=== PATIENT | male | born 1935 | race Caucasian/White ===

== ENCOUNTER 2018-02-15 11:35 | Inpatient (IN) ==
[2018-02-15] MEDS ORDERED: cefTRIAXone 1,000 MG in SODIUM CHLORIDE 0.9% 100 ML IV STA (12:17)
[2018-02-15] MEDS ORDERED: SODIUM CHLORIDE 0.9% 500 ML IV STA (12:17)
[2018-02-15] MEDS ORDERED: methylPREDNISolone SOD SUC 125 MG/2 ML VIAL IV STA (12:17)
[2018-02-15] MEDS ORDERED: ONDANSETRON 4 MG/2 ML VIAL IV STA (12:17)
[2018-02-15] MEDS ORDERED: ALBUTEROL 2.5 MG/3 ML NEB RESP TX SCH (12:30)
[2018-02-15 12:49] LABS: Basophils % 0.2 % (0.0-0.8); Hematocrit 48.1 VOL% (42.0-52.0); Hemoglobin 15.5 GM/DL (14.0-18.0); Immature Granulocytes % 0.3 %; Immature Granulocytes Absolute 0.04 #; Lymphocytes # 0.8 10*3/uL (1.4-4.0); Lymphocytes % 6.8 % (21.2-54.2); Mean Corpuscular HGB Conc 32.2 GM/DL (32-36); Mean Corpuscular Hemoglobin 30 PG (27-34); Mean Corpuscular Volume 93.8 FL (87-102); Mean Platelet Volume 10.4 FL (9.6-12.0); Monocytes # 0.5 10*3/uL (0.11-0.8); Monocytes % 4.5 % (1.7-12.7); Neutrophils # 10.5 10*3/uL (1.4-7.4); Neutrophils % 88.2 % (38.7-73.9); Platelet Count 258 T/CUMM (130-400); Red Blood Count 5.13 MC/CUMM (3.8-5.5); Red Cell Distribution Width 14.6 % (9.3-17.3); White Blood Count 11.9 T/CUMM (4-12)
[2018-02-15] MEDS ORDERED: FUROSEMIDE 40 MG/4 ML VIAL IV STA (12:50)
[2018-02-15 13:00] LABS: PT Patient Result 11.2 SECS
[2018-02-15 13:16] LABS: ABG Base Excess 1.9 MMOL/L (-2.5-2.5); ABG PCO2 36.3 MM HG (35-48); ABG PH 7.453 (7.35-7.45); ABG PO2 84.1 MM HG (80-95); ABG TCO2 21.5 MMOL/L (23-27)
[2018-02-15 13:17] LABS: Lactic Acid 1.8 MMOL/L (0.4-2.0)
[2018-02-15 13:18] LABS: Bilirubin,Total 0.9 MG/DL (0.2-1.0); Calcium 8.8 MG/DL (8.5-10.1); Osmolality,Calculated 285.1 MOS/KG (273-304); Potassium 4.3 MMOL/L (3.5-5.1); Total Protein 7.9 G/DL (6.4-8.3)
[2018-02-15] MEDS ORDERED: NITROGLYCERIN 2% OINT 1 INCH/GM PACK TOP STA (14:10)
[2018-02-15] MEDS ORDERED: ENOXAPARIN 100 MG/ML SYRINGE SUBCUT STA (14:10)
[2018-02-15] MEDS ORDERED: ASPIRIN EC 325 MG TABLET PO STA (14:11)
[2018-02-15] MEDS ORDERED: PANTOPRAZOLE 40 MG VIAL IV STA (14:11)
[2018-02-15] MEDS ORDERED: ENOXAPARIN 80 MG/0.8 ML SYRINGE SUBCUT ONE (14:51)
[2018-02-15] MEDS ORDERED: METOPROLOL TARTRATE 25 MG TABLET PO STA (17:14)
[2018-02-15] MEDS ORDERED: DIAZEPAM 5 MG TABLET PO ONE (17:20)
[2018-02-15] MEDS ORDERED: MAGNESIUM SULF RIDER 2 GM in PREMIX 1 EACH IV PRN ×2 (17:20→19:16)
[2018-02-15] MEDS ORDERED: diphenhydrAMINE CAP 25 MG CAPSULE PO ONE (17:20)
[2018-02-15] MEDS ORDERED: POTASSIUM CHLORIDE RIDER 10 MEQ in PREMIX 1 EACH IV PRN (17:20)
[2018-02-15 17:50] LABS: CKMB % 12.9 %
[2018-02-15 17:52] LABS: Troponin I 4.3 NG/ML (0.00-0.045)
[2018-02-15] MEDS ORDERED: TIROFIBAN 0 MCG in PREMIX 1 EACH IV ONE (19:16)
[2018-02-15] MEDS ORDERED: ONDANSETRON 4 MG/2 ML VIAL IV PRN (19:16)
[2018-02-15] MEDS ORDERED: MAGNESIUM SULF RIDER 4 GM in PREMIX 1 EACH IV PRN (19:16)
[2018-02-15] MEDS ORDERED: POTASSIUM CHLORIDE 20 MEQ TABLET PO PRN (19:16)
[2018-02-15] MEDS ORDERED: TIROFIBAN IV ONE (19:52)
[2018-02-15] MEDS: ALBUTEROL/IPRATROPIUM 3 ML NEB RESP TX SCH ×2 (20:12→23:37)
[2018-02-15] MEDS: ROSUVASTATIN 20 MG TABLET PO SCH (20:40)
[2018-02-15] MEDS: NITROGLYCERIN 2% OINT 1 INCH/GM PACK TOP SCH (20:41)
[2018-02-15] MEDS: FUROSEMIDE 40 MG/4 ML VIAL IV SCH (20:41)
[2018-02-15] MEDS: FAMOTIDINE 20 MG/2 ML VIAL IV SCH (20:42)
[2018-02-15] MEDS: SODIUM CHLORIDE 0.9% 1,000 ML IV SCH (20:42)
[2018-02-15] MEDS: diphenhydrAMINE CAP 25 MG CAPSULE PO SCH (20:43)
[2018-02-15] MEDS: ENOXAPARIN 60 MG/0.6 ML SYRINGE SUBCUT SCH (20:43)
[2018-02-15] MEDS: TIROFIBAN 5,000 MCG/100 ML PREMIX IV SCH (21:56)
[2018-02-15 22:27] LABS: Troponin I 4.45 NG/ML (0.00-0.045)
[2018-02-16] MEDS: diphenhydrAMINE CAP 25 MG CAPSULE PO SCH ×4 (00:59→18:06)
[2018-02-16] MEDS: FAMOTIDINE 20 MG/2 ML VIAL IV SCH ×4 (00:59→18:06)
[2018-02-16] MEDS: NITROGLYCERIN 2% OINT 1 INCH/GM PACK TOP SCH ×4 (00:59→17:45)
[2018-02-16] MEDS: TIROFIBAN 5,000 MCG/100 ML PREMIX IV SCH ×2 (02:50→11:22)
[2018-02-16 03:18] LABS: Basophils % 0.1 % (0.0-0.8); Hematocrit 41.8 VOL% (42.0-52.0); Hemoglobin 13.2 GM/DL (14.0-18.0); Immature Granulocytes % 0.6 %; Immature Granulocytes Absolute 0.07 #; Lymphocytes # 0.9 10*3/uL (1.4-4.0); Lymphocytes % 8.1 % (21.2-54.2); Mean Corpuscular HGB Conc 31.6 GM/DL (32-36); Mean Corpuscular Hemoglobin 29 PG (27-34); Mean Corpuscular Volume 92.1 FL (87-102); Mean Platelet Volume 10.8 FL (9.6-12.0); Monocytes # 0.8 10*3/uL (0.11-0.8); Monocytes % 7.5 % (1.7-12.7); Neutrophils # 9.2 10*3/uL (1.4-7.4); Neutrophils % 83.7 % (38.7-73.9); Platelet Count 226 T/CUMM (130-400); Red Blood Count 4.54 MC/CUMM (3.8-5.5); Red Cell Distribution Width 14.6 % (9.3-17.3)
[2018-02-16 03:26] LABS: Calcium 8.3 MG/DL (8.5-10.1); Osmolality,Calculated 286.3 MOS/KG (273-304); Potassium 3.8 MMOL/L (3.5-5.1)
[2018-02-16 03:29] LABS: CKMB % 10.3 %
[2018-02-16 03:34] LABS: Troponin I 5.35 NG/ML (0.00-0.045)
[2018-02-16 03:37] LABS: Albumin 3.6 G/DL (3.4-5.0); Bilirubin,Total 0.6 MG/DL (0.2-1.0); Calcium 8.2 MG/DL (8.5-10.1); Osmolality,Calculated 280.7 MOS/KG (273-304); Potassium 3.8 MMOL/L (3.5-5.1); Risk Ratio 3.3; Thyroid Stimulating Hormone 0.191 uIU/ml (0.358-3.74); VLDL CHOLESTEROL 9.8 MG/DL
[2018-02-16] MEDS: ALBUTEROL/IPRATROPIUM 3 ML NEB RESP TX SCH ×5 (03:54→19:03)
[2018-02-16] MEDS: methylPREDNISolone SOD SUC 40 MG/1 ML VIAL IV SCH ×3 (05:17→21:09)
[2018-02-16] MEDS: ENOXAPARIN 60 MG/0.6 ML SYRINGE SUBCUT SCH ×2 (08:26→21:08)
[2018-02-16] MEDS: FUROSEMIDE 40 MG/4 ML VIAL IV SCH ×2 (08:27→16:42)
[2018-02-16] MEDS ORDERED: DIAZEPAM 5 MG TABLET ONE (10:44)
[2018-02-16] MEDS ORDERED: diphenhydrAMINE CAP 50 MG CAPSULE ONE (10:44)
[2018-02-16] MEDS ORDERED: LIDOCAINE 1% 20 ML VIAL ONE (13:47)
[2018-02-16] MEDS ORDERED: HYDROmorphone 2 MG/1 ML VIAL ONE (13:47)
[2018-02-16] MEDS ORDERED: MIDAZOLAM 2 MG/2 ML VIAL ONE ×2 (13:48→15:09)
[2018-02-16] MEDS ORDERED: ENOXAPARIN 30 MG/0.3 ML SYRINGE ONE (14:08)
[2018-02-16] MEDS ORDERED: ZALEPLON 5 MG CAPSULE PO PRN (15:30)
[2018-02-16] MEDS ORDERED: NITROGLYCERIN SL 0.4 MG TABLET SL PRN (15:30)
[2018-02-16] MEDS ORDERED: MIDAZOLAM 2 MG/2 ML VIAL IV ONE (16:13)
[2018-02-16] MEDS: ASPIRIN EC 81 MG TABLET PO SCH (16:42)
[2018-02-16 16:46] LABS: Apearance,Urine CLEAR (Clear); Bilirubin,Urine Negative (Negative); Blood, Urine Moderate mg/dL (Negative); Glucose,Urine (UA) Negative (Negative); Hyaline Casts,Urine 9 /LPF (0-3); Ketones,Urine Negative (Negative); Mucus,Urine Occasional /LPF (Occasional); Nitrite,Urine Negative (Negative); Protein,Urine Negative; RBC,Urine 57 /HPF (0-4); Urine Color Yellow (Yellow); Urine Specific Gravity 1.015 (1.001-1.035); Urine Urobilinogen < 2.0 EU/DL (0.2-1.0)
[2018-02-16] MEDS ORDERED: HALOPERIDOL 5 MG/ML AMP IV ONE (17:17)
[2018-02-16] MEDS ORDERED: HYDROmorphone 2 MG/1 ML VIAL IV ONE (17:18)
[2018-02-16 17:27] LABS: CKMB % 4.5 %
[2018-02-16 17:33] LABS: Troponin I 2.48 NG/ML (0.00-0.045)
[2018-02-16] MEDS: LORazepam 2 MG/1 ML VIAL IV PRN ×2 (18:32→22:55)
[2018-02-16] MEDS: SODIUM CHLORIDE 0.9% 1,000 ML IV SCH (21:00)
[2018-02-17] MEDS: ALBUTEROL/IPRATROPIUM 3 ML NEB RESP TX SCH ×7 (00:27→23:30)
[2018-02-17] MEDS: LORazepam 2 MG/1 ML VIAL IV PRN ×4 (00:35→23:59)
[2018-02-17] MEDS: HYDROmorphone 2 MG/1 ML VIAL IV PRN ×2 (01:34→11:26)
[2018-02-17] MEDS: NITROGLYCERIN 2% OINT 1 INCH/GM PACK TOP SCH ×4 (03:00→18:15)
[2018-02-17 04:22] LABS: Basophils % 0.1 % (0.0-0.8); Hematocrit 41.6 VOL% (42.0-52.0); Hemoglobin 13.5 GM/DL (14.0-18.0); Immature Granulocytes % 0.8 %; Immature Granulocytes Absolute 0.17 #; Lymphocytes # 0.6 10*3/uL (1.4-4.0); Lymphocytes % 3.1 % (21.2-54.2); Mean Corpuscular HGB Conc 32.5 GM/DL (32-36); Mean Corpuscular Hemoglobin 30 PG (27-34); Mean Corpuscular Volume 92.4 FL (87-102); Mean Platelet Volume 10.7 FL (9.6-12.0); Monocytes # 1.5 10*3/uL (0.11-0.8); Monocytes % 7.3 % (1.7-12.7); Neutrophils # 17.9 10*3/uL (1.4-7.4); Neutrophils % 88.7 % (38.7-73.9); Platelet Count 242 T/CUMM (130-400); Red Cell Distribution Width 14.6 % (9.3-17.3); White Blood Count 20.1 T/CUMM (4-12)
[2018-02-17 04:37] LABS: Calcium 8.3 MG/DL (8.5-10.1); Osmolality,Calculated 294.1 MOS/KG (273-304)
[2018-02-17 04:40] LABS: CKMB % 1.6 %; Calcium 8.3 MG/DL (8.5-10.1); Osmolality,Calculated 293.1 MOS/KG (273-304); Potassium 4.2 MMOL/L (3.5-5.1)
[2018-02-17 04:43] LABS: Troponin I 1.76 NG/ML (0.00-0.045)
[2018-02-17] MEDS ORDERED: HALOPERIDOL 5 MG/ML AMP IM ONE (05:00)
[2018-02-17 05:59] LABS: Anisocytosis 1+; Band Neutrophils 1 % (0-10); Lymphocytes 3 % (20-55); Platelet Estimate Normal; Segmented Neutrophils 90 % (50-85); Total Cells Counted 100
[2018-02-17] MEDS: ROSUVASTATIN 20 MG TABLET PO SCH ×2 (06:20→22:38)
[2018-02-17] MEDS: methylPREDNISolone SOD SUC 40 MG/1 ML VIAL IV SCH ×2 (06:57→16:15)
[2018-02-17] MEDS ORDERED: LIDOCAINE 2% TOP JELLY 20 ML VIAL INTRAURETH ONE (09:23)
[2018-02-17] MEDS ORDERED: LIDOCAINE 2% 20 ML VIAL ONE (09:24)
[2018-02-17] MEDS: ENOXAPARIN 60 MG/0.6 ML SYRINGE SUBCUT SCH (09:29)
[2018-02-17] MEDS: ASPIRIN EC 81 MG TABLET PO SCH (10:30)
[2018-02-17] MEDS ORDERED: MIDAZOLAM 2 MG/2 ML VIAL ONE (11:00)
[2018-02-17] MEDS ORDERED: MIDAZOLAM 2 MG/2 ML VIAL IV ONE (11:03)
[2018-02-17] MEDS ORDERED: HYDROmorphone 2 MG/1 ML VIAL IV ONE (11:26)
[2018-02-17] MEDS: FUROSEMIDE 40 MG/4 ML VIAL IV SCH (12:28)
[2018-02-17] MEDS: METOPROLOL TARTRATE 25 MG TABLET PO SCH ×2 (13:44→22:50)
[2018-02-18] MEDS: NITROGLYCERIN 2% OINT 1 INCH/GM PACK TOP SCH ×4 (01:08→17:45)
[2018-02-18] MEDS: methylPREDNISolone SOD SUC 40 MG/1 ML VIAL IV SCH ×3 (01:08→15:31)
[2018-02-18] MEDS: HYDROmorphone 2 MG/1 ML VIAL IV PRN (01:42)
[2018-02-18] MEDS: ALBUTEROL/IPRATROPIUM 3 ML NEB RESP TX SCH ×6 (03:33→23:18)
[2018-02-18] MEDS: LORazepam 2 MG/1 ML VIAL IV PRN ×4 (04:30→21:09)
[2018-02-18 05:02] LABS: Hematocrit 43.9 VOL% (42.0-52.0); Immature Granulocytes % 0.6 %; Immature Granulocytes Absolute 0.13 #; Lymphocytes # 0.6 10*3/uL (1.4-4.0); Lymphocytes % 2.8 % (21.2-54.2); Mean Corpuscular HGB Conc 31.9 GM/DL (32-36); Mean Corpuscular Hemoglobin 30 PG (27-34); Mean Platelet Volume 11.1 FL (9.6-12.0); Monocytes # 1.6 10*3/uL (0.11-0.8); Monocytes % 7.8 % (1.7-12.7); Neutrophils # 17.9 10*3/uL (1.4-7.4); Neutrophils % 88.8 % (38.7-73.9); Platelet Count 254 T/CUMM (130-400); Red Blood Count 4.72 MC/CUMM (3.8-5.5); Red Cell Distribution Width 14.4 % (9.3-17.3); White Blood Count 20.2 T/CUMM (4-12)
[2018-02-18 05:29] LABS: Calcium 8.7 MG/DL (8.5-10.1); Osmolality,Calculated 305.6 MOS/KG (273-304); Potassium 4.8 MMOL/L (3.5-5.1)
[2018-02-18 07:08] LABS: Band Neutrophils 3 % (0-10); Lymphocytes 4 % (20-55); Metamyelocytes 1 %; Segmented Neutrophils 83 % (50-85)
[2018-02-18 07:12] LABS: Platelet Estimate Normal; Total Cells Counted 100
[2018-02-18] MEDS: METOPROLOL TARTRATE 25 MG TABLET PO SCH ×3 (09:08→20:53)
[2018-02-18] MEDS: HALOPERIDOL 5 MG/ML AMP IM PRN ×2 (14:03→20:30)
[2018-02-18] MEDS: ROSUVASTATIN 20 MG TABLET PO SCH (20:53)
[2018-02-19] MEDS: methylPREDNISolone SOD SUC 40 MG/1 ML VIAL IV SCH ×4 (00:31→23:53)
[2018-02-19] MEDS: NITROGLYCERIN 2% OINT 1 INCH/GM PACK TOP SCH ×5 (00:41→23:54)
[2018-02-19] MEDS: ALBUTEROL/IPRATROPIUM 3 ML NEB RESP TX SCH ×6 (03:19→23:28)
[2018-02-19 04:52] LABS: Basophils % 0.1 % (0.0-0.8); Hematocrit 42.9 VOL% (42.0-52.0); Hemoglobin 13.6 GM/DL (14.0-18.0); Immature Granulocytes % 0.6 %; Lymphocytes # 0.5 10*3/uL (1.4-4.0); Lymphocytes % 2.8 % (21.2-54.2); Mean Corpuscular HGB Conc 31.7 GM/DL (32-36); Mean Corpuscular Hemoglobin 30 PG (27-34); Mean Corpuscular Volume 93.7 FL (87-102); Mean Platelet Volume 11.7 FL (9.6-12.0); Monocytes # 1.3 10*3/uL (0.11-0.8); Monocytes % 7.9 % (1.7-12.7); Neutrophils # 14.8 10*3/uL (1.4-7.4); Neutrophils % 88.6 % (38.7-73.9); Platelet Count 217 T/CUMM (130-400); Red Blood Count 4.58 MC/CUMM (3.8-5.5); Red Cell Distribution Width 14.6 % (9.3-17.3); White Blood Count 16.7 T/CUMM (4-12)
[2018-02-19 05:12] LABS: Calcium 8.9 MG/DL (8.5-10.1); Potassium 4.5 MMOL/L (3.5-5.1)
[2018-02-19 05:21] LABS: Band Neutrophils 1 % (0-10); Lymphocytes 2 % (20-55); Segmented Neutrophils 93 % (50-85); Total Cells Counted 100
[2018-02-19 05:22] LABS: Hypochromasia 1+
[2018-02-19] MEDS: HYDROmorphone 2 MG/1 ML VIAL IV PRN (05:58)
[2018-02-19] MEDS: HALOPERIDOL 5 MG/ML AMP IM PRN (06:38)
[2018-02-19] MEDS: LORazepam 2 MG/1 ML VIAL IV PRN (08:38)
[2018-02-19] MEDS: METOPROLOL TARTRATE 25 MG TABLET PO SCH ×2 (08:40→21:09)
[2018-02-19] MEDS ORDERED: MIDAZOLAM 10 MG/2 ML VIAL ONE (09:23)
[2018-02-19] MEDS ORDERED: VECURONIUM 10 MG VIAL IV ONE ×2 (09:23→09:25)
[2018-02-19] MEDS ORDERED: ETOMIDATE 20 MG/10 ML VIAL IV ONE ×2 (09:23→09:25)
[2018-02-19] MEDS ORDERED: MIDAZOLAM 2 MG/2 ML VIAL IV ONE (09:25)
[2018-02-19] MEDS: PROPOFOL 1,000 MG/100 ML BOTTLE IV SCH ×2 (10:04→21:10)
[2018-02-19] MEDS ORDERED: ALBUTEROL/IPRATROPIUM 3 ML NEB RESP TX PRN (10:08)
[2018-02-19 10:56] LABS: ABG Base Excess -3.2 MMOL/L (-2.5-2.5); ABG HCO3 21.8 MMOL/L (20-26); ABG Oxygen Saturation 99.6 % (95-100); ABG PCO2 65.2 MM HG (35-48); ABG TCO2 23.6 MMOL/L (23-27); Allen Test Positive; Pt O2 Delivery Device Ventilator
[2018-02-19] MEDS ORDERED: DEXTROSE 50% 25 GM/50 ML SYRINGE IV PRN (11:58)
[2018-02-19] MEDS ORDERED: GLUCAGON 1 MG VIAL IM PRN (11:58)
[2018-02-19] MEDS: INSULIN REGULAR 100 UNIT/ML SUBCUT SCH ×3 (12:27→23:54)
[2018-02-19 12:39] LABS: Albumin 3.6 G/DL (3.4-5.0); Bilirubin,Direct 0.48 MG/DL (0.0-0.20); Bilirubin,Indirect 0.7 MG/DL (0.0-1.0); Bilirubin,Total 1.2 MG/DL (0.2-1.0); Total Protein 7.1 G/DL (6.4-8.3)
[2018-02-19] MEDS ORDERED: METOPROLOL TARTRATE 5 MG/5 ML VIAL IV ONE (13:04)
[2018-02-19] MEDS ORDERED: SODIUM CHLORIDE 0.9% 500 ML IV ONE ×2 (13:12→16:02)
[2018-02-19] MEDS: SODIUM CHLORIDE 0.45% 1,000 ML IV SCH (16:34)
[2018-02-19] MEDS: METOPROLOL TARTRATE 5 MG/5 ML VIAL IV SCH ×2 (17:14→23:53)
[2018-02-19] MEDS: MEROPENEM 500 MG in SODIUM CHLORIDE 0.9% 100 ML IV SCH (18:40)
[2018-02-19] MEDS: ROSUVASTATIN 20 MG TABLET PO SCH (21:09)
[2018-02-19] MEDS: PHENYLEPHRINE DRIP 40 MG/250 ML PREMIX IV PRN (21:10)
[2018-02-20] MEDS: SODIUM CHLORIDE 0.45% 1,000 ML IV SCH ×2 (03:10→13:46)
[2018-02-20] MEDS: ALBUTEROL/IPRATROPIUM 3 ML NEB RESP TX SCH ×6 (03:14→22:47)
[2018-02-20] MEDS: MEROPENEM 500 MG in SODIUM CHLORIDE 0.9% 100 ML IV SCH (03:27)
[2018-02-20 03:56] LABS: ABG Base Excess -0.4 MMOL/L (-2.5-2.5); ABG HCO3 24.2 MMOL/L (20-26); ABG Oxygen Saturation 99.2 % (95-100); ABG PCO2 46.9 MM HG (35-48); ABG PH 7.348 (7.35-7.45); ABG TCO2 22.7 MMOL/L (23-27); Allen Test Positive; Pt O2 Delivery Device Ventilator
[2018-02-20 04:24] LABS: Basophils % 0.1 % (0.0-0.8); Hematocrit 39.8 VOL% (42.0-52.0); Hemoglobin 12.4 GM/DL (14.0-18.0); Immature Granulocytes % 0.6 %; Immature Granulocytes Absolute 0.13 #; Lymphocytes # 0.4 10*3/uL (1.4-4.0); Lymphocytes % 1.8 % (21.2-54.2); Mean Corpuscular HGB Conc 31.2 GM/DL (32-36); Mean Corpuscular Hemoglobin 30 PG (27-34); Mean Corpuscular Volume 96.8 FL (87-102); Mean Platelet Volume 11.4 FL (9.6-12.0); Monocytes # 1.7 10*3/uL (0.11-0.8); Monocytes % 7.6 % (1.7-12.7); Neutrophils # 19.8 10*3/uL (1.4-7.4); Neutrophils % 89.9 % (38.7-73.9); Platelet Count 257 T/CUMM (130-400); Red Blood Count 4.11 MC/CUMM (3.8-5.5); Red Cell Distribution Width 14.8 % (9.3-17.3)
[2018-02-20 04:33] LABS: INR 1.2; PT Patient Result 13.1 SECS; Partial Thromboplastin Time 26.4 SECS (0-40)
[2018-02-20 04:44] LABS: Band Neutrophils 2 % (0-10); Lymphocytes 2 % (20-55); Segmented Neutrophils 87 % (50-85); Total Cells Counted 100
[2018-02-20 04:45] LABS: Hypochromasia 1+; Platelet Estimate Adequate
[2018-02-20 04:50] LABS: Albumin 2.9 G/DL (3.4-5.0); Bilirubin,Total 1.2 MG/DL (0.2-1.0); Calcium 8.1 MG/DL (8.5-10.1); Osmolality,Calculated 338.3 MOS/KG (273-304); Potassium 5.2 MMOL/L (3.5-5.1); Prealbumin 10.4 MG/DL (20-40); Total Protein 6.2 G/DL (6.4-8.3)
[2018-02-20] MEDS: PROPOFOL 1,000 MG/100 ML BOTTLE IV SCH ×3 (05:05→20:31)
[2018-02-20] MEDS: NITROGLYCERIN 2% OINT 1 INCH/GM PACK TOP SCH ×4 (06:26→23:43)
[2018-02-20] MEDS: METOPROLOL TARTRATE 5 MG/5 ML VIAL IV SCH (06:26)
[2018-02-20] MEDS: INSULIN REGULAR 100 UNIT/ML SUBCUT SCH ×3 (06:26→17:33)
[2018-02-20] MEDS: methylPREDNISolone SOD SUC 40 MG/1 ML VIAL IV SCH ×3 (06:27→23:25)
[2018-02-20] MEDS: METOPROLOL TARTRATE 25 MG TABLET PO SCH (08:42)
[2018-02-20] MEDS: PHENYLEPHRINE DRIP 40 MG/250 ML PREMIX IV PRN ×4 (12:05→23:21)
[2018-02-20] MEDS ORDERED: ROCURONIUM 100 MG/10 ML VIAL IV ONE (13:37)
[2018-02-20] MEDS ORDERED: fentaNYL 100 MCG/2 ML VIAL ONE (13:37)
[2018-02-20] MEDS ORDERED: SEVOFLURANE 1 UNIT/15 MINUTE INH ONE (13:37)
[2018-02-20] MEDS: ROSUVASTATIN 20 MG TABLET PO SCH (21:30)
[2018-02-21] MEDS: INSULIN REGULAR 100 UNIT/ML SUBCUT SCH ×4 (01:31→18:40)
[2018-02-21] MEDS: ALBUTEROL/IPRATROPIUM 3 ML NEB RESP TX SCH ×6 (02:21→23:36)
[2018-02-21 03:42] LABS: Allen Test Positive; Pt O2 Delivery Device Ventilator
[2018-02-21 03:43] LABS: ABG Base Excess -3.2 MMOL/L (-2.5-2.5); ABG HCO3 21.8 MMOL/L (20-26); ABG Oxygen Saturation 99.6 % (95-100); ABG PCO2 43.7 MM HG (35-48); ABG PH 7.326 (7.35-7.45); ABG TCO2 20.2 MMOL/L (23-27)
[2018-02-21] MEDS: PHENYLEPHRINE DRIP 40 MG/250 ML PREMIX IV PRN ×3 (04:46→16:13)
[2018-02-21] MEDS: MEROPENEM 500 MG in SODIUM CHLORIDE 0.9% 100 ML IV SCH (04:53)
[2018-02-21] MEDS: PROPOFOL 1,000 MG/100 ML BOTTLE IV SCH ×4 (05:18→21:15)
[2018-02-21] MEDS: NITROGLYCERIN 2% OINT 1 INCH/GM PACK TOP SCH (05:20)
[2018-02-21 05:51] LABS: Basophils % 0.1 % (0.0-0.8); Hematocrit 39.1 VOL% (42.0-52.0); Immature Granulocytes % 0.8 %; Immature Granulocytes Absolute 0.14 #; Lymphocytes # 0.4 10*3/uL (1.4-4.0); Lymphocytes % 2.1 % (21.2-54.2); Mean Corpuscular HGB Conc 30.7 GM/DL (32-36); Mean Corpuscular Hemoglobin 30 PG (27-34); Mean Corpuscular Volume 98.5 FL (87-102); Mean Platelet Volume 11.4 FL (9.6-12.0); Monocytes # 1.1 10*3/uL (0.11-0.8); Monocytes % 6.1 % (1.7-12.7); Neutrophils # 16.3 10*3/uL (1.4-7.4); Neutrophils % 90.9 % (38.7-73.9); Platelet Count 250 T/CUMM (130-400); Red Blood Count 3.97 MC/CUMM (3.8-5.5); White Blood Count 17.9 T/CUMM (4-12)
[2018-02-21 06:05] LABS: Albumin 2.4 G/DL (3.4-5.0); Bilirubin,Total 1.5 MG/DL (0.2-1.0); Calcium 7.5 MG/DL (8.5-10.1); Osmolality,Calculated 333.4 MOS/KG (273-304); Potassium 4.6 MMOL/L (3.5-5.1); Total Protein 6.2 G/DL (6.4-8.3)
[2018-02-21] MEDS: SODIUM CHLORIDE 0.45% 1,000 ML IV SCH ×2 (06:11→16:21)
[2018-02-21 06:20] LABS: Band Neutrophils 1 % (0-10); Lymphocytes 2 % (20-55); Segmented Neutrophils 93 % (50-85); Total Cells Counted 100
[2018-02-21 06:21] LABS: Microcytosis 1+
[2018-02-21] MEDS: methylPREDNISolone SOD SUC 40 MG/1 ML VIAL IV SCH ×3 (06:34→22:09)
[2018-02-21] MEDS: ASPIRIN CHEW 81 MG TABLET PO SCH (09:11)
[2018-02-21] MEDS: HALOPERIDOL 5 MG/ML AMP IM PRN (11:26)
[2018-02-21] MEDS: CLINDAMYCIN INJ 300 MG in PREMIX 1 EACH IV SCH ×3 (11:26→22:09)
[2018-02-21] MEDS: HYDROmorphone 2 MG/1 ML VIAL IV PRN (12:38)
[2018-02-21] MEDS: ROSUVASTATIN 20 MG TABLET PO SCH (22:09)
[2018-02-22] MEDS: INSULIN REGULAR 100 UNIT/ML SUBCUT SCH ×4 (00:49→17:13)
[2018-02-22] MEDS: SODIUM CHLORIDE 0.45% 1,000 ML IV SCH (02:21)
[2018-02-22] MEDS: ALBUTEROL/IPRATROPIUM 3 ML NEB RESP TX SCH ×6 (03:23→23:35)
[2018-02-22 03:59] LABS: ABG HCO3 25.3 MMOL/L (20-26); ABG Oxygen Saturation 99.6 % (95-100); ABG PCO2 37.3 MM HG (35-48); ABG PH 7.434 (7.35-7.45); ABG TCO2 22.2 MMOL/L (23-27); Pt O2 Delivery Device Ventilator
[2018-02-22] MEDS: CLINDAMYCIN INJ 300 MG in PREMIX 1 EACH IV SCH ×4 (05:05→22:47)
[2018-02-22] MEDS: MEROPENEM 500 MG in SODIUM CHLORIDE 0.9% 100 ML IV SCH (05:05)
[2018-02-22] MEDS: PHENYLEPHRINE DRIP 40 MG/250 ML PREMIX IV PRN ×2 (05:18→22:48)
[2018-02-22] MEDS: PROPOFOL 1,000 MG/100 ML BOTTLE IV SCH ×3 (05:20→21:50)
[2018-02-22 05:27] LABS: Calcium 8.4 MG/DL (8.5-10.1); Osmolality,Calculated 323.1 MOS/KG (273-304)
[2018-02-22] MEDS: methylPREDNISolone SOD SUC 40 MG/1 ML VIAL IV SCH ×3 (06:32→22:47)
[2018-02-22] MEDS: SODIUM CHLORIDE 23.4% CONC INJ 38.5 MEQ in STERILE WATER INJ 1,000 ML IV SCH ×2 (10:01→23:10)
[2018-02-22] MEDS: ASPIRIN CHEW 81 MG TABLET PO SCH (10:01)
[2018-02-22] MEDS: LEVOFLOXACIN INJ 250 MG in PREMIX 1 EACH IV SCH (12:31)
[2018-02-22] MEDS ORDERED: HYDROmorphone 2 MG/1 ML VIAL IV PRN (12:37)
[2018-02-22] MEDS: HALOPERIDOL 5 MG/ML AMP IM PRN (13:45)
[2018-02-22] MEDS: HYDROmorphone 2 MG/1 ML VIAL IV PRN ×2 (13:57→17:49)
[2018-02-22] MEDS: CARVEDILOL 3.125 MG TABLET PO SCH ×2 (14:04→21:10)
[2018-02-22] MEDS: NICOTINE 21 MG/24 HR PATCH TRANSDERM SCH (14:28)
[2018-02-22] MEDS: ROSUVASTATIN 20 MG TABLET PO SCH (21:10)
[2018-02-22] MEDS: CLORAZEPATE 3.75 MG TABLET PO SCH (21:10)
[2018-02-23] MEDS: INSULIN REGULAR 100 UNIT/ML SUBCUT SCH ×4 (01:21→17:41)
[2018-02-23] MEDS: ALBUTEROL/IPRATROPIUM 3 ML NEB RESP TX SCH ×5 (04:10→21:08)
[2018-02-23 04:28] LABS: ABG Base Excess 1.1 MMOL/L (-2.5-2.5); ABG HCO3 25.4 MMOL/L (20-26); ABG Oxygen Saturation 99.3 % (95-100); ABG PCO2 38.7 MM HG (35-48); ABG PH 7.426 (7.35-7.45); ABG TCO2 22.8 MMOL/L (23-27); Pt O2 Delivery Device Ventilator
[2018-02-23] MEDS: CLINDAMYCIN INJ 300 MG in PREMIX 1 EACH IV SCH ×4 (05:42→21:56)
[2018-02-23] MEDS: HYDROmorphone 2 MG/1 ML VIAL IV PRN ×2 (05:42→16:25)
[2018-02-23 05:54] LABS: Basophils % 0.1 % (0.0-0.8); Hematocrit 33.8 VOL% (42.0-52.0); Hemoglobin 10.4 GM/DL (14.0-18.0); Immature Granulocytes % 1.3 %; Immature Granulocytes Absolute 0.15 #; Lymphocytes # 0.3 10*3/uL (1.4-4.0); Lymphocytes % 2.7 % (21.2-54.2); Mean Corpuscular HGB Conc 30.8 GM/DL (32-36); Mean Corpuscular Hemoglobin 30 PG (27-34); Mean Corpuscular Volume 96.6 FL (87-102); Mean Platelet Volume 11.2 FL (9.6-12.0); Monocytes # 0.6 10*3/uL (0.11-0.8); Monocytes % 5.2 % (1.7-12.7); Neutrophils # 10.3 10*3/uL (1.4-7.4); Neutrophils % 90.7 % (38.7-73.9); Platelet Count 163 T/CUMM (130-400); Red Cell Distribution Width 14.6 % (9.3-17.3); White Blood Count 11.4 T/CUMM (4-12)
[2018-02-23 06:03] LABS: Calcium 8.1 MG/DL (8.5-10.1); Osmolality,Calculated 314.7 MOS/KG (273-304); Potassium 5.7 MMOL/L (3.5-5.1)
[2018-02-23] MEDS: methylPREDNISolone SOD SUC 40 MG/1 ML VIAL IV SCH ×3 (06:03→22:00)
[2018-02-23 06:12] LABS: PT Patient Result 11.3 SECS; Partial Thromboplastin Time 23.1 SECS (0-40)
[2018-02-23 06:50] LABS: Platelet Estimate Adequate; Polychromasia Few; Segmented Neutrophils 100 % (50-85); Total Cells Counted 100
[2018-02-23] MEDS: PROPOFOL 1,000 MG/100 ML BOTTLE IV SCH ×3 (07:48→23:08)
[2018-02-23] MEDS ORDERED: SODIUM POLYSTYRENE SULFATE 15 GM/60 ML BOTTLE PO ONE ×2 (07:54→16:44)
[2018-02-23] MEDS: CLORAZEPATE 3.75 MG TABLET PO SCH ×2 (09:23→21:56)
[2018-02-23] MEDS: NICOTINE 21 MG/24 HR PATCH TRANSDERM SCH (09:24)
[2018-02-23] MEDS: CARVEDILOL 3.125 MG TABLET PO SCH ×2 (09:24→21:56)
[2018-02-23] MEDS: ASPIRIN CHEW 81 MG TABLET PO SCH (09:24)
[2018-02-23] MEDS: LEVOFLOXACIN INJ 250 MG in PREMIX 1 EACH IV SCH (10:37)
[2018-02-23] MEDS: HALOPERIDOL 5 MG/ML AMP IM PRN (10:42)
[2018-02-23] MEDS: SODIUM CHLORIDE 23.4% CONC INJ 38.5 MEQ in STERILE WATER INJ 1,000 ML IV SCH (12:51)
[2018-02-23] MEDS: ROSUVASTATIN 20 MG TABLET PO SCH (21:56)
[2018-02-24] MEDS: ALBUTEROL/IPRATROPIUM 3 ML NEB RESP TX SCH ×7 (00:19→22:46)
[2018-02-24] MEDS: INSULIN REGULAR 100 UNIT/ML SUBCUT SCH ×5 (00:30→23:31)
[2018-02-24] MEDS: SODIUM CHLORIDE 23.4% CONC INJ 38.5 MEQ in STERILE WATER INJ 1,000 ML IV SCH ×2 (02:45→15:55)
[2018-02-24 03:47] LABS: ABG HCO3 27.2 MMOL/L (20-26); ABG Oxygen Saturation 98.2 % (95-100); ABG PCO2 40.2 MM HG (35-48); ABG PH 7.448 (7.35-7.45); ABG PO2 121.5 MM HG (80-95); ABG TCO2 28.4 MMOL/L (23-27); Allen Test Positive; Pt O2 Delivery Device Ventilator
[2018-02-24 04:57] LABS: Basophils % 0.1 % (0.0-0.8); Hematocrit 33.7 VOL% (42.0-52.0); Hemoglobin 10.5 GM/DL (14.0-18.0); Immature Granulocytes % 0.6 %; Immature Granulocytes Absolute 0.06 #; Lymphocytes # 0.3 10*3/uL (1.4-4.0); Lymphocytes % 3.3 % (21.2-54.2); Mean Corpuscular HGB Conc 31.2 GM/DL (32-36); Mean Corpuscular Hemoglobin 30 PG (27-34); Mean Corpuscular Volume 94.9 FL (87-102); Monocytes # 0.5 10*3/uL (0.11-0.8); Neutrophils # 9.1 10*3/uL (1.4-7.4); Platelet Count 149 T/CUMM (130-400); Red Blood Count 3.55 MC/CUMM (3.8-5.5); Red Cell Distribution Width 14.3 % (9.3-17.3)
[2018-02-24 05:19] LABS: Calcium 8.1 MG/DL (8.5-10.1)
[2018-02-24 05:23] LABS: Potassium 6.1 MMOL/L (3.5-5.1)
[2018-02-24 05:28] LABS: Band Neutrophils 1 % (0-10); Lymphocytes 5 % (20-55); Segmented Neutrophils 89 % (50-85); Total Cells Counted 100
[2018-02-24 05:29] LABS: Hypochromasia 1+; Platelet Estimate Normal
[2018-02-24 05:30] LABS: Microcytosis 1+
[2018-02-24] MEDS: methylPREDNISolone SOD SUC 40 MG/1 ML VIAL IV SCH ×3 (06:14→22:57)
[2018-02-24] MEDS: CLINDAMYCIN INJ 300 MG in PREMIX 1 EACH IV SCH ×4 (06:14→22:57)
[2018-02-24] MEDS: PROPOFOL 1,000 MG/100 ML BOTTLE IV SCH ×3 (07:26→23:08)
[2018-02-24] MEDS ORDERED: SODIUM POLYSTYRENE SULFATE 15 GM/60 ML BOTTLE RECTAL ONE (07:54)
[2018-02-24] MEDS: CARVEDILOL 3.125 MG TABLET PO SCH ×2 (08:30→20:53)
[2018-02-24] MEDS: ASPIRIN CHEW 81 MG TABLET PO SCH (08:30)
[2018-02-24] MEDS: CLORAZEPATE 3.75 MG TABLET PO SCH ×2 (08:30→20:52)
[2018-02-24] MEDS: HYDROmorphone 2 MG/1 ML VIAL IV PRN (10:39)
[2018-02-24] MEDS: LEVOFLOXACIN INJ 250 MG in PREMIX 1 EACH IV SCH (11:13)
[2018-02-24] MEDS: ROSUVASTATIN 20 MG TABLET PO SCH (20:52)
[2018-02-25] MEDS: ALBUTEROL/IPRATROPIUM 3 ML NEB RESP TX SCH ×6 (02:30→22:59)
[2018-02-25 03:32] LABS: Basophils % 0.1 % (0.0-0.8); Hematocrit 35.9 VOL% (42.0-52.0); Hemoglobin 11.3 GM/DL (14.0-18.0); Immature Granulocytes % 0.8 %; Immature Granulocytes Absolute 0.12 #; Lymphocytes # 0.3 10*3/uL (1.4-4.0); Lymphocytes % 1.8 % (21.2-54.2); Mean Corpuscular HGB Conc 31.5 GM/DL (32-36); Mean Corpuscular Hemoglobin 29 PG (27-34); Mean Corpuscular Volume 93.2 FL (87-102); Mean Platelet Volume 10.9 FL (9.6-12.0); Monocytes # 0.7 10*3/uL (0.11-0.8); Monocytes % 4.7 % (1.7-12.7); Neutrophils # 13.1 10*3/uL (1.4-7.4); Neutrophils % 92.6 % (38.7-73.9); Platelet Count 146 T/CUMM (130-400); Red Blood Count 3.85 MC/CUMM (3.8-5.5); Red Cell Distribution Width 14.3 % (9.3-17.3); White Blood Count 14.1 T/CUMM (4-12)
[2018-02-25 03:33] LABS: Allen Test Positive; Pt O2 Delivery Device Ventilator
[2018-02-25 03:38] LABS: ABG Base Excess 3.2 MMOL/L (-2.5-2.5); ABG HCO3 27.2 MMOL/L (20-26); ABG Oxygen Saturation 98.7 % (95-100); ABG PCO2 41.6 MM HG (35-48); ABG PH 7.432 (7.35-7.45); ABG TCO2 24.5 MMOL/L (23-27)
[2018-02-25 04:00] LABS: Calcium 8.2 MG/DL (8.5-10.1); Osmolality,Calculated 298.4 MOS/KG (273-304); Potassium 5.7 MMOL/L (3.5-5.1)
[2018-02-25 05:35] LABS: Platelet Estimate Adequate; Segmented Neutrophils 98 % (50-85); Total Cells Counted 100
[2018-02-25 05:36] LABS: Polychromasia Few
[2018-02-25] MEDS: SODIUM CHLORIDE 23.4% CONC INJ 38.5 MEQ in STERILE WATER INJ 1,000 ML IV SCH ×2 (06:30→22:31)
[2018-02-25] MEDS: CLINDAMYCIN INJ 300 MG in PREMIX 1 EACH IV SCH ×4 (06:31→22:13)
[2018-02-25] MEDS: PROPOFOL 1,000 MG/100 ML BOTTLE IV SCH ×3 (06:32→19:17)
[2018-02-25] MEDS: methylPREDNISolone SOD SUC 40 MG/1 ML VIAL IV SCH ×3 (06:35→23:55)
[2018-02-25] MEDS: INSULIN REGULAR 100 UNIT/ML SUBCUT SCH ×4 (06:49→23:25)
[2018-02-25] MEDS: ASPIRIN CHEW 81 MG TABLET PO SCH (08:22)
[2018-02-25] MEDS: CARVEDILOL 3.125 MG TABLET PO SCH ×2 (08:22→22:13)
[2018-02-25] MEDS: CLORAZEPATE 3.75 MG TABLET PO SCH ×2 (08:22→22:13)
[2018-02-25] MEDS: HYDROmorphone 2 MG/1 ML VIAL IV PRN (08:35)
[2018-02-25] MEDS: LEVOFLOXACIN INJ 250 MG in PREMIX 1 EACH IV SCH (11:39)
[2018-02-25] MEDS ORDERED: ROCURONIUM 100 MG/10 ML VIAL IV ONE (12:01)
[2018-02-25] MEDS ORDERED: ETOMIDATE 40 MG/20 ML VIAL IV ONE (12:01)
[2018-02-25] MEDS: ROSUVASTATIN 20 MG TABLET PO SCH (22:12)
[2018-02-26 03:47] LABS: ABG Base Excess 2.6 MMOL/L (-2.5-2.5); ABG HCO3 26.7 MMOL/L (20-26); ABG Oxygen Saturation 99.9 % (95-100); ABG PCO2 43.7 MM HG (35-48); ABG PH 7.409 (7.35-7.45); ABG TCO2 24.4 MMOL/L (23-27); Allen Test Positive; Pt O2 Delivery Device Ventilator
[2018-02-26] MEDS: ALBUTEROL/IPRATROPIUM 3 ML NEB RESP TX SCH ×6 (03:47→23:00)
[2018-02-26] MEDS: CLINDAMYCIN INJ 300 MG in PREMIX 1 EACH IV SCH ×4 (04:00→23:03)
[2018-02-26 04:39] LABS: Basophils % 0.1 % (0.0-0.8); Eosinophils % 0.1 % (0.00-10.9); Hematocrit 35.2 VOL% (42.0-52.0); Hemoglobin 11.2 GM/DL (14.0-18.0); Immature Granulocytes Absolute 0.14 #; Lymphocytes # 0.3 10*3/uL (1.4-4.0); Lymphocytes % 2.4 % (21.2-54.2); Mean Corpuscular HGB Conc 31.8 GM/DL (32-36); Mean Corpuscular Hemoglobin 30 PG (27-34); Mean Corpuscular Volume 93.1 FL (87-102); Mean Platelet Volume 11.4 FL (9.6-12.0); Monocytes # 0.9 10*3/uL (0.11-0.8); Monocytes % 6.2 % (1.7-12.7); Neutrophils # 12.6 10*3/uL (1.4-7.4); Neutrophils % 90.2 % (38.7-73.9); Platelet Count 148 T/CUMM (130-400); Red Blood Count 3.78 MC/CUMM (3.8-5.5); Red Cell Distribution Width 14.4 % (9.3-17.3)
[2018-02-26 04:56] LABS: Calcium 7.7 MG/DL (8.5-10.1); Osmolality,Calculated 298.3 MOS/KG (273-304); Potassium 4.9 MMOL/L (3.5-5.1)
[2018-02-26 05:02] LABS: Hypochromasia 1+; Lymphocytes 2 % (20-55); Ovalocytes Slight; Platelet Estimate Adequate; Segmented Neutrophils 93 % (50-85); Total Cells Counted 100
[2018-02-26 05:03] LABS: Microcytosis Slight
[2018-02-26] MEDS: INSULIN REGULAR 100 UNIT/ML SUBCUT SCH ×4 (09:18→23:58)
[2018-02-26] MEDS: ASPIRIN CHEW 81 MG TABLET PO SCH (10:10)
[2018-02-26] MEDS: CARVEDILOL 3.125 MG TABLET PO SCH ×2 (10:10→21:09)
[2018-02-26] MEDS: CLORAZEPATE 3.75 MG TABLET PO SCH ×2 (10:10→21:09)
[2018-02-26] MEDS: PROPOFOL 1,000 MG/100 ML BOTTLE IV SCH ×2 (10:11→18:13)
[2018-02-26] MEDS: methylPREDNISolone SOD SUC 40 MG/1 ML VIAL IV SCH ×3 (10:12→23:03)
[2018-02-26] MEDS: LEVOFLOXACIN INJ 250 MG in PREMIX 1 EACH IV SCH (10:15)
[2018-02-26] MEDS: HYDROmorphone 2 MG/1 ML VIAL IV PRN ×4 (10:15→21:20)
[2018-02-26] MEDS: SODIUM CHLORIDE 23.4% CONC INJ 38.5 MEQ in STERILE WATER INJ 1,000 ML IV SCH ×2 (12:06→12:57)
[2018-02-26] MEDS: HALOPERIDOL 5 MG/ML AMP IM PRN ×2 (13:41→21:20)
[2018-02-26] MEDS: LORazepam 2 MG/1 ML VIAL IV PRN (15:55)
[2018-02-26] MEDS: ROSUVASTATIN 20 MG TABLET PO SCH (21:09)
[2018-02-27] MEDS: SODIUM CHLORIDE 23.4% CONC INJ 38.5 MEQ in STERILE WATER INJ 1,000 ML IV SCH ×2 (01:46→15:56)
[2018-02-27] MEDS: PROPOFOL 1,000 MG/100 ML BOTTLE IV SCH ×3 (02:33→20:15)
[2018-02-27] MEDS: ALBUTEROL/IPRATROPIUM 3 ML NEB RESP TX SCH ×5 (03:40→20:12)
[2018-02-27] MEDS: HALOPERIDOL 5 MG/ML AMP IM PRN (04:00)
[2018-02-27 04:10] LABS: ABG Base Excess 2.8 MMOL/L (-2.5-2.5); ABG Oxygen Saturation 98.5 % (95-100); ABG PCO2 41.5 MM HG (35-48); ABG PH 7.428 (7.35-7.45); ABG TCO2 24.5 MMOL/L (23-27); Allen Test Positive; Pt O2 Delivery Device Ventilator
[2018-02-27 04:26] LABS: Basophils % 0.1 % (0.0-0.8); Hematocrit 32.7 VOL% (42.0-52.0); Hemoglobin 10.7 GM/DL (14.0-18.0); Immature Granulocytes % 0.9 %; Immature Granulocytes Absolute 0.08 #; Lymphocytes # 0.3 10*3/uL (1.4-4.0); Mean Corpuscular HGB Conc 32.7 GM/DL (32-36); Mean Corpuscular Hemoglobin 30 PG (27-34); Mean Corpuscular Volume 91.9 FL (87-102); Mean Platelet Volume 11.2 FL (9.6-12.0); Monocytes # 0.5 10*3/uL (0.11-0.8); Monocytes % 5.5 % (1.7-12.7); Neutrophils # 7.9 10*3/uL (1.4-7.4); Neutrophils % 90.5 % (38.7-73.9); Platelet Count 150 T/CUMM (130-400); Red Blood Count 3.56 MC/CUMM (3.8-5.5); Red Cell Distribution Width 14.1 % (9.3-17.3); White Blood Count 8.7 T/CUMM (4-12)
[2018-02-27 04:49] LABS: Lymphocytes 2 % (20-55); Platelet Estimate Normal; Segmented Neutrophils 93 % (50-85); Total Cells Counted 100
[2018-02-27 04:50] LABS: Calcium 8.1 MG/DL (8.5-10.1); Hypochromasia 1+; Microcytosis Slight; Osmolality,Calculated 292.5 MOS/KG (273-304); Potassium 5.1 MMOL/L (3.5-5.1)
[2018-02-27] MEDS: CLINDAMYCIN INJ 300 MG in PREMIX 1 EACH IV SCH ×4 (05:40→22:23)
[2018-02-27] MEDS: INSULIN REGULAR 100 UNIT/ML SUBCUT SCH ×3 (05:41→18:28)
[2018-02-27] MEDS: methylPREDNISolone SOD SUC 40 MG/1 ML VIAL IV SCH ×3 (06:14→22:26)
[2018-02-27] MEDS: HYDROmorphone 2 MG/1 ML VIAL IV PRN ×2 (07:57→10:11)
[2018-02-27] MEDS: ASPIRIN CHEW 81 MG TABLET PO SCH (08:51)
[2018-02-27] MEDS: CARVEDILOL 3.125 MG TABLET PO SCH ×2 (08:51→20:51)
[2018-02-27] MEDS: CLORAZEPATE 3.75 MG TABLET PO SCH ×2 (08:56→20:52)
[2018-02-27] MEDS: MULTIVITAMIN LIQUID (CENTRUM) 60 ML BOTTLE PER TUBE SCH (08:56)
[2018-02-27 10:04] LABS: Allen Test Positive
[2018-02-27 10:05] LABS: ABG Base Excess 2.1 MMOL/L (-2.5-2.5); ABG HCO3 26.3 MMOL/L (20-26); ABG PCO2 46.1 MM HG (35-48); ABG PH 7.386 (7.35-7.45); ABG TCO2 24.9 MMOL/L (23-27)
[2018-02-27] MEDS: LEVOFLOXACIN INJ 250 MG in PREMIX 1 EACH IV SCH (12:54)
[2018-02-27] MEDS: ROSUVASTATIN 20 MG TABLET PO SCH (20:52)
[2018-02-28] MEDS: ALBUTEROL/IPRATROPIUM 3 ML NEB RESP TX SCH ×8 (00:30→19:40)
[2018-02-28] MEDS: INSULIN REGULAR 100 UNIT/ML SUBCUT SCH ×5 (00:46→23:55)
[2018-02-28] MEDS: PROPOFOL 1,000 MG/100 ML BOTTLE IV SCH ×2 (02:37→10:56)
[2018-02-28 04:35] LABS: Allen Test Positive; Pt O2 Delivery Device Ventilator
[2018-02-28 04:36] LABS: ABG HCO3 26.2 MMOL/L (20-26); ABG Oxygen Saturation 98.7 % (95-100); ABG PCO2 43.2 MM HG (35-48); ABG PH 7.404 (7.35-7.45); ABG TCO2 24.1 MMOL/L (23-27)
[2018-02-28 04:38] LABS: Basophils % 0.1 % (0.0-0.8); Hematocrit 34.5 VOL% (42.0-52.0); Immature Granulocytes % 0.9 %; Immature Granulocytes Absolute 0.11 #; Lymphocytes # 0.3 10*3/uL (1.4-4.0); Lymphocytes % 2.3 % (21.2-54.2); Mean Corpuscular HGB Conc 31.9 GM/DL (32-36); Mean Corpuscular Hemoglobin 29 PG (27-34); Mean Corpuscular Volume 91.8 FL (87-102); Mean Platelet Volume 11.3 FL (9.6-12.0); Monocytes # 0.5 10*3/uL (0.11-0.8); Monocytes % 3.8 % (1.7-12.7); Neutrophils # 11.1 10*3/uL (1.4-7.4); Neutrophils % 92.9 % (38.7-73.9); Platelet Count 205 T/CUMM (130-400); Red Blood Count 3.76 MC/CUMM (3.8-5.5); Red Cell Distribution Width 14.1 % (9.3-17.3)
[2018-02-28 04:56] LABS: Calcium 8.3 MG/DL (8.5-10.1); Osmolality,Calculated 293.5 MOS/KG (273-304); Potassium 4.7 MMOL/L (3.5-5.1)
[2018-02-28] MEDS: SODIUM CHLORIDE 23.4% CONC INJ 38.5 MEQ in STERILE WATER INJ 1,000 ML IV SCH (05:25)
[2018-02-28] MEDS: CLINDAMYCIN INJ 300 MG in PREMIX 1 EACH IV SCH ×3 (05:26→16:53)
[2018-02-28 05:32] LABS: Band Neutrophils 1 % (0-10); Hypochromasia Slight; Lymphocytes 2 % (20-55); Platelet Estimate Normal; Segmented Neutrophils 94 % (50-85); Total Cells Counted 100
[2018-02-28] MEDS: methylPREDNISolone SOD SUC 40 MG/1 ML VIAL IV SCH ×3 (06:23→23:50)
[2018-02-28 07:27] LABS: Allen Test Positive
[2018-02-28 07:28] LABS: ABG Base Excess 2.6 MMOL/L (-2.5-2.5); ABG HCO3 27.5 MMOL/L (20-26); ABG Oxygen Saturation 98.1 % (95-100); ABG PCO2 43.5 MM HG (35-48); ABG PH 7.418 (7.35-7.45); ABG PO2 121.8 MM HG (80-95); ABG TCO2 28.8 MMOL/L (23-27)
[2018-02-28] MEDS: CLORAZEPATE 3.75 MG TABLET PO SCH ×2 (08:45→21:39)
[2018-02-28] MEDS: MULTIVITAMIN LIQUID (CENTRUM) 60 ML BOTTLE PER TUBE SCH (08:45)
[2018-02-28] MEDS: ASPIRIN CHEW 81 MG TABLET PO SCH (08:45)
[2018-02-28] MEDS: CARVEDILOL 3.125 MG TABLET PO SCH ×2 (08:45→21:39)
[2018-02-28 09:59] LABS: ABG Base Excess 2.3 MMOL/L (-2.5-2.5); ABG HCO3 26.5 MMOL/L (20-26); ABG Oxygen Saturation 96.7 % (95-100); ABG PCO2 41.3 MM HG (35-48); ABG PH 7.423 (7.35-7.45); ABG PO2 85.6 MM HG (80-95); ABG TCO2 23.6 MMOL/L (23-27); Allen Test Positive
[2018-02-28] MEDS ORDERED: FUROSEMIDE 40 MG/4 ML VIAL IV ONE (10:03)
[2018-02-28] MEDS: LEVOFLOXACIN INJ 250 MG in PREMIX 1 EACH IV SCH (11:00)
[2018-02-28] MEDS: ROSUVASTATIN 20 MG TABLET PO SCH (21:39)
[2018-03-01 03:30] LABS: ABG Base Excess 4.9 MMOL/L (-2.5-2.5); ABG HCO3 28.8 MMOL/L (20-26); ABG Oxygen Saturation 98.5 % (95-100); ABG PCO2 43.6 MM HG (35-48); ABG PH 7.441 (7.35-7.45); ABG TCO2 25.7 MMOL/L (23-27); Allen Test Positive
[2018-03-01] MEDS: INSULIN REGULAR 100 UNIT/ML SUBCUT SCH ×3 (05:15→17:44)
[2018-03-01 05:26] LABS: Basophils % 0.1 % (0.0-0.8); Hematocrit 37.2 VOL% (42.0-52.0); Hemoglobin 12.4 GM/DL (14.0-18.0); Immature Granulocytes % 1.2 %; Immature Granulocytes Absolute 0.18 #; Lymphocytes # 0.4 10*3/uL (1.4-4.0); Lymphocytes % 2.4 % (21.2-54.2); Mean Corpuscular HGB Conc 33.3 GM/DL (32-36); Mean Corpuscular Hemoglobin 30 PG (27-34); Mean Platelet Volume 10.9 FL (9.6-12.0); Monocytes # 0.8 10*3/uL (0.11-0.8); Monocytes % 5.1 % (1.7-12.7); Neutrophils # 13.7 10*3/uL (1.4-7.4); Neutrophils % 91.2 % (38.7-73.9); Platelet Count 279 T/CUMM (130-400); Red Blood Count 4.18 MC/CUMM (3.8-5.5); White Blood Count 15.1 T/CUMM (4-12)
[2018-03-01 05:36] LABS: Calcium 8.2 MG/DL (8.5-10.1); Osmolality,Calculated 291.5 MOS/KG (273-304); Potassium 4.4 MMOL/L (3.5-5.1)
[2018-03-01 06:13] LABS: Hypochromasia 1+; Lymphocytes 1 % (20-55); Platelet Estimate Adequate; Segmented Neutrophils 96 % (50-85); Total Cells Counted 100
[2018-03-01 06:14] LABS: Microcytosis Slight
[2018-03-01] MEDS: ALBUTEROL/IPRATROPIUM 3 ML NEB RESP TX SCH ×4 (07:33→19:20)
[2018-03-01] MEDS: methylPREDNISolone SOD SUC 40 MG/1 ML VIAL IV SCH ×3 (08:47→23:03)
[2018-03-01] MEDS: MULTIVITAMIN LIQUID (CENTRUM) 60 ML BOTTLE PER TUBE SCH (08:48)
[2018-03-01] MEDS: CLORAZEPATE 3.75 MG TABLET PO SCH ×2 (08:48→21:54)
[2018-03-01] MEDS: ASPIRIN CHEW 81 MG TABLET PO SCH (08:48)
[2018-03-01] MEDS: CARVEDILOL 3.125 MG TABLET PO SCH (08:48)
[2018-03-01] MEDS: PROPOFOL 1,000 MG/100 ML BOTTLE IV SCH (08:54)
[2018-03-01] MEDS: FUROSEMIDE 20 MG/2 ML VIAL IV SCH ×2 (11:27→17:44)
[2018-03-01] MEDS: CLINDAMYCIN INJ 300 MG in PREMIX 1 EACH IV SCH ×3 (11:27→21:54)
[2018-03-01] MEDS: LEVOFLOXACIN INJ 250 MG in PREMIX 1 EACH IV SCH (12:02)
[2018-03-01] MEDS: FLUCONAZOLE INJ 100 MG in IV BAG 1 EACH IV SCH (13:12)
[2018-03-01] MEDS: LOSARTAN 25 MG TABLET PO SCH (15:28)
[2018-03-01] MEDS: CARVEDILOL 6.25 MG TABLET PO SCH (21:54)
[2018-03-01] MEDS: ROSUVASTATIN 20 MG TABLET PO SCH (21:54)
[2018-03-01] MEDS: HYDROmorphone 2 MG/1 ML VIAL IV PRN (21:57)
[2018-03-02] MEDS: INSULIN REGULAR 100 UNIT/ML SUBCUT SCH ×3 (01:26→12:01)
[2018-03-02 03:58] LABS: ABG Base Excess 7.7 MMOL/L (-2.5-2.5); ABG HCO3 31.4 MMOL/L (20-26); ABG Oxygen Saturation 97.4 % (95-100); ABG PCO2 43.4 MM HG (35-48); ABG PH 7.478 (7.35-7.45); ABG PO2 92.8 MM HG (80-95); ABG TCO2 27.6 MMOL/L (23-27); Allen Test Positive
[2018-03-02] MEDS: FUROSEMIDE 20 MG/2 ML VIAL IV SCH ×2 (04:50→12:55)
[2018-03-02] MEDS: CLINDAMYCIN INJ 300 MG in PREMIX 1 EACH IV SCH ×3 (05:00→10:13)
[2018-03-02 05:24] LABS: Basophils % 0.1 % (0.0-0.8); Hematocrit 37.6 VOL% (42.0-52.0); Hemoglobin 12.5 GM/DL (14.0-18.0); Immature Granulocytes Absolute 0.16 #; Lymphocytes # 0.5 10*3/uL (1.4-4.0); Lymphocytes % 2.8 % (21.2-54.2); Mean Corpuscular HGB Conc 33.2 GM/DL (32-36); Mean Corpuscular Hemoglobin 30 PG (27-34); Mean Corpuscular Volume 89.3 FL (87-102); Mean Platelet Volume 10.4 FL (9.6-12.0); Monocytes # 1.3 10*3/uL (0.11-0.8); Monocytes % 7.7 % (1.7-12.7); Neutrophils # 14.5 10*3/uL (1.4-7.4); Neutrophils % 88.4 % (38.7-73.9); Platelet Count 316 T/CUMM (130-400); Red Blood Count 4.21 MC/CUMM (3.8-5.5); Red Cell Distribution Width 14.1 % (9.3-17.3); White Blood Count 16.4 T/CUMM (4-12)
[2018-03-02 05:47] LABS: Calcium 8.4 MG/DL (8.5-10.1); Osmolality,Calculated 294.7 MOS/KG (273-304); Potassium 4.5 MMOL/L (3.5-5.1)
[2018-03-02] MEDS: methylPREDNISolone SOD SUC 40 MG/1 ML VIAL IV SCH (06:08)
[2018-03-02 06:56] LABS: Band Neutrophils 2 % (0-10); Eosinophils 1 % (0-10); Hypochromasia Slight; Lymphocytes 3 % (20-55); Platelet Estimate Normal; Segmented Neutrophils 86 % (50-85); Total Cells Counted 100
[2018-03-02] MEDS: ALBUTEROL/IPRATROPIUM 3 ML NEB RESP TX SCH ×2 (07:17→11:09)
[2018-03-02] MEDS: CARVEDILOL 6.25 MG TABLET PO SCH (09:23)
[2018-03-02] MEDS: ASPIRIN CHEW 81 MG TABLET PO SCH (09:24)
[2018-03-02] MEDS: CLORAZEPATE 3.75 MG TABLET PO SCH (09:24)
[2018-03-02] MEDS: MULTIVITAMIN LIQUID (CENTRUM) 60 ML BOTTLE PER TUBE SCH (09:30)
[2018-03-02] MEDS: PROPOFOL 1,000 MG/100 ML BOTTLE IV SCH (09:38)
[2018-03-02] MEDS: LOSARTAN 25 MG TABLET PO SCH (09:38)
[2018-03-02] MEDS: FLUCONAZOLE INJ 100 MG in IV BAG 1 EACH IV SCH (10:44)
[2018-03-02] MEDS: LEVOFLOXACIN INJ 250 MG in PREMIX 1 EACH IV SCH (11:16)
[2018-03-02 15:27] VITALS: BP 92/61
== END 2018-03-02 14:55 | DRG 250 ==
LOC: N.ED 11:35 → N.TELES 15:54 → N.CC 21:36
PROVIDERS: ADMIT Internal Medicine Cardiovascular Disease; ATTEND Internal Medicine Cardiovascular Disease